=== PATIENT | female | born 1960 | race Caucasian/White ===

== ENCOUNTER → 2016-11-15 | Outpatient (CLI) | payer BC | LOC: BHSO 14:55 | DX: F41.1 Generalized anxiety disorder (principal) ==

== ENCOUNTER → 2017-02-08 | Outpatient (CLI) | payer BC | LOC: BHSO 14:54 | DX: F41.1 Generalized anxiety disorder (principal) ==

== ENCOUNTER → 2017-06-26 | Outpatient (CLI) | payer BC | LOC: BHSO 15:33 | DX: F41.1 Generalized anxiety disorder (principal) ==

== ENCOUNTER → 2017-09-18 | Outpatient (CLI) | payer BC | LOC: BHSO 15:57 | DX: F41.1 Generalized anxiety disorder (principal) ==

== ENCOUNTER → 2017-12-12 | Outpatient (CLI) | payer BC | LOC: BHSO 15:55 | DX: F41.1 Generalized anxiety disorder (principal) | CPT/HCPCS: G0463 ==

== ENCOUNTER → 2018-12-06 | Outpatient (CLI) | payer BC | LOC: BHSO 16:17 | DX: F41.1 Generalized anxiety disorder (principal) | CPT/HCPCS: G0463 ==

== ENCOUNTER → 2019-06-06 | Outpatient (CLI) | payer BC | LOC: BHSO 16:16 | DX: F33.42 Major depressive disorder, recurrent, in full remission (principal) | CPT/HCPCS: G0463 ==

== ENCOUNTER → 2019-12-05 | Outpatient (CLI) | payer BC | LOC: BHSO 16:24 | DX: F41.1 Generalized anxiety disorder (principal) | CPT/HCPCS: G0463 ==